=== PATIENT | female | born 1945 | race Caucasian/White ===

== ENCOUNTER 2016-11-25 16:14 | Emergency (ER) | payer OTHER ==
--- NOTE | 2016-11-25 19:00 | ED NURSING NOTES ---
Clinical Report - Nurses [facility] [place] [address] 11/25/2016 16:16 Patient: LYNDSAY FRAZIER TRIAGE Triage time 16:15. Acuity: LEVEL 3. Chief Complaint: (Wound on Coccyx). Alert. No acute distress. --16:36 Jose Noland R.N. 16:21 11/25/16. BP: 133/54. HR: 82. RR: 18. O2 saturation: 95%. Temp: 99.1 F. Pain level now 03/25. --16:36 Jose Noland R.N. Weight: 64.8 kg stated. Height/Length: 64 inches Per Patient. BMI: 24.5. --16:32 Jose Noland R.N. Medications AmLODIPine Besylate Oral. Lisinopril Oral. --16:29 Jose Noland R.N. Allergies None. --16:28 Jose Noland R.N. History Arrived by EMS. Historian: patient. ( Patient with history of MS. Fell in September and has not been able to walk or bear weight since then. Injured Shoulder in September has right arm in sling. Patient had surgery for pilonidal cyst when she was 18. States she has had some sort of sore on her Coccyx since then. Now, reportedly, has open decubitis ulcer on Coccyx. Currently it is dressed and is clean dry and intact. It is not clear why patient was transported to the hospital today.). SOCIAL HX: Former smoker, end date 10/13/2016. NUTRITIONAL RISK ASSESSMENT: The nutritional risk assessment revealed no deficiencies. FALL RISK ASSESSMENT: Fall risk assessment completed. Risk factors identified include severe pain and patient age greater than 65 years, history of fall and impairment of mobility. Fall interventions initiated. Side rails up x2. Bed in low position. Call light in reach of patient. Instructed not to get up without assistance. FUNCTIONAL ASSESSMENT: Functional assessment performed: requires total care with the activities of daily living; is bed-ridden- this mobility impairment is an ongoing problem. The patient is under physician and physical therapist care for hers functional impairment. --16:36 Jose Noland R.N. PROBLEMS: Hypertension. Multiple Sclerosis. --16:30 Jose Noland R.N. Interventions ID band on patient. To room. --16:36 Jose Noland R.N. PHYSICAL ASSESSMENT GENERAL / NEURO / PSYCH: Alert. Oriented X 4. Appears in no acute distress. RESPIRATORY: Respirations not labored. SKIN: Skin is warm and dry. --16:36 Jose Noland R.N. NURSING PROGRESS NOTES Patient identifiers checked. Call light placed in reach. Side rails up. Bed placed in lowest position. Brakes of bed on. --16:37 Jose Noland R.N. 17:00. ( Assisted turning patient so practitioner could visualize wound on Coccyx. Pictures taken.). --17:33 Jose Noland R.N. ( Margarita-care and then wound repacked and dressing placed). --17:34 Jose Noland R.N. Blood drawn for lab. --17:34 Jose Noland R.N. 19:53 11/25/2016 Hydrocodone-APAP (Hydrocodone-Acetaminophen) PO 5/325 mg Tablets 1 tab given. Allergies verified, confirmed 5 rights and sedative warning given to the patient and patient's family. --19:53 Elana Hughes DISPOSITION / DISCHARGE Fall risk assessment completed. Risk factors identified include patient age greater than 65 years and impairment of mobility. Fall interventions initiated. Patient placed on stretcher. Side rails up x2. Brakes on Bed in low position. Patient visible from nurses' station and identified as a fall risk. Family at bedside. Instructed not to get up without assistance. No learning barriers present. Discharge instructions provided and reviewed with the patient and family. Follow up contact number follow up with Dr Coronel. Patient and family verbalized understanding. Written instructions provided in Maltese. No warning instructions, medication instructions, treatment instructions, referrals given to the patient or diet instructions. No activity restrictions, note given or stop smoking instructions. The patient was discharged by the nurse practitioner. She was discharged to the [facility] and unaccompanied at time of discharge. She left the Emergency Department via ambulance and on a stretcher. Driving (ems). --19:36 Elana Hughes 19:34 11/25/16. BP: 132/60. HR: 68. RR: 16. O2 saturation: 96%. Temp: deferred. Pain level now: 10/23. --19:36 [facility]. [facility] Departure time: 19:46. ( pt upset with her discharge instructions, pt states this place is a joke and left angry). No learning barriers present. Discharge instructions provided and reviewed with the patient. Reviewed medication(s) side effects, precautions, dosing and course information. Prescription(s) given to the patient. Patient verbalized understanding. Written instructions provided in Maltese. No warning instructions, treatment instructions, referrals given to the patient, diet instructions or activity restrictions. No follow up contact number given or stop smoking instructions. No work note given. The patient was discharged by the nurse practitioner. She was discharged home and accompanied by spouse. She left the Emergency Department ambulatory and via private vehicle. Spouse driving. ( pt refused DC vitals). FALL RISK ASSESSMENT: Fall risk assessment completed. No fall risk identified. --19:46 Elana Hughes --END STRIKE>> Charted On Wrong Patient --19:47 Elana Hughes [facility] 19:44 11/25/16. BP: deferred. HR: deferred. RR: deferred. O2 saturation: deferred. Temp: deferred. Pain level now deferred. --19:46 Elana Hughes --END STRIKE>> Charted on wrong patient. --19:47 Elana Hughes Departure time: 20:17. Transported via ambulance by EMS. --20:17 Elana Hughes Locked/Released at 11/25/2016 20:17 by Elana Hughes
--- NOTE | 2016-11-25 19:00 | ED NURSING NOTES ---
Clinical Report - Nurses [facility] [place] [address] 11/25/2016 16:16 Patient: LYNDSAY FRAZIER TRIAGE Triage time 16:15. Acuity: LEVEL 3. Chief Complaint: (Wound on Coccyx). Alert. No acute distress. --16:36 Jose Noland R.N. 16:21 11/25/16. BP: 133/54. HR: 82. RR: 18. O2 saturation: 95%. Temp: 99.1 F. Pain level now 03/25. --16:36 Jose Noland R.N. Weight: 64.8 kg stated. Height/Length: 64 inches Per Patient. BMI: 24.5. --16:32 Jose Noland R.N. Medications AmLODIPine Besylate Oral. Lisinopril Oral. --16:29 Jose Noland R.N. Allergies None. --16:28 Jose Noland R.N. History Arrived by EMS. Historian: patient. ( Patient with history of MS. Fell in September and has not been able to walk or bear weight since then. Injured Shoulder in September has right arm in sling. Patient had surgery for pilonidal cyst when she was 18. States she has had some sort of sore on her Coccyx since then. Now, reportedly, has open decubitis ulcer on Coccyx. Currently it is dressed and is clean dry and intact. It is not clear why patient was transported to the hospital today.). SOCIAL HX: Former smoker, end date 10/13/2016. NUTRITIONAL RISK ASSESSMENT: The nutritional risk assessment revealed no deficiencies. FALL RISK ASSESSMENT: Fall risk assessment completed. Risk factors identified include severe pain and patient age greater than 65 years, history of fall and impairment of mobility. Fall interventions initiated. Side rails up x2. Bed in low position. Call light in reach of patient. Instructed not to get up without assistance. FUNCTIONAL ASSESSMENT: Functional assessment performed: requires total care with the activities of daily living; is bed-ridden- this mobility impairment is an ongoing problem. The patient is under physician and physical therapist care for hers functional impairment. --16:36 Jose Noland R.N. PROBLEMS: Hypertension. Multiple Sclerosis. --16:30 Jose Noland R.N. Interventions ID band on patient. To room. --16:36 Jose Noland R.N. PHYSICAL ASSESSMENT GENERAL / NEURO / PSYCH: Alert. Oriented X 4. Appears in no acute distress. RESPIRATORY: Respirations not labored. SKIN: Skin is warm and dry. --16:36 Jose Noland R.N. NURSING PROGRESS NOTES Patient identifiers checked. Call light placed in reach. Side rails up. Bed placed in lowest position. Brakes of bed on. --16:37 Jose Noland R.N. 17:00. ( Assisted turning patient so practitioner could visualize wound on Coccyx. Pictures taken.). --17:33 Jose Noland R.N. ( Margarita-care and then wound repacked and dressing placed). --17:34 Jose Noland R.N. Blood drawn for lab. --17:34 Jose Noland R.N. 19:53 11/25/2016 Hydrocodone-APAP (Hydrocodone-Acetaminophen) PO 5/325 mg Tablets 1 tab given. Allergies verified, confirmed 5 rights and sedative warning given to the patient and patient's family. --19:53 Elana Hughes DISPOSITION / DISCHARGE Fall risk assessment completed. Risk factors identified include patient age greater than 65 years and impairment of mobility. Fall interventions initiated. Patient placed on stretcher. Side rails up x2. Brakes on Bed in low position. Patient visible from nurses' station and identified as a fall risk. Family at bedside. Instructed not to get up without assistance. No learning barriers present. Discharge instructions provided and reviewed with the patient and family. Follow up contact number follow up with Dr Coronel. Patient and family verbalized understanding. Written instructions provided in Turkish. No warning instructions, medication instructions, treatment instructions, referrals given to the patient or diet instructions. No activity restrictions, note given or stop smoking instructions. The patient was discharged by the nurse practitioner. She was discharged to the residential and unaccompanied at time of discharge. She left the Emergency Department via ambulance and on a stretcher. Driving (ems). --19:36 Elana Hughes 19:34 11/25/16. BP: 132/60. HR: 68. RR: 16. O2 saturation: 96%. Temp: deferred. Pain level now: 10/23. --19:36 Oma Hughes. [facility] Departure time: 19:46. ( pt upset with her discharge instructions, pt states this place is a joke and left angry). No learning barriers present. Discharge instructions provided and reviewed with the patient. Reviewed medication(s) side effects, precautions, dosing and course information. Prescription(s) given to the patient. Patient verbalized understanding. Written instructions provided in Turkish. No warning instructions, treatment instructions, referrals given to the patient, diet instructions or activity restrictions. No follow up contact number given or stop smoking instructions. No work note given. The patient was discharged by the nurse practitioner. She was discharged home and accompanied by spouse. She left the Emergency Department ambulatory and via private vehicle. Spouse driving. ( pt refused DC vitals). FALL RISK ASSESSMENT: Fall risk assessment completed. No fall risk identified. --19:46 Elana Hughes --END STRIKE>> Charted On Wrong Patient --19:47 Elana Hughes [facility]-- 19:44 11/25/16. BP: deferred. HR: deferred. RR: deferred. O2 saturation: deferred. Temp: deferred. Pain level now deferred. --19:46 Elana Hughes --END STRIKE>> Charted on wrong patient. --19:47 Elana Hughes Departure time: 20:17. Transported via ambulance by EMS. --20:17 Elana Hughes Locked/Released at 11/25/2016 20:17 by Elana Hughes
--- NOTE | 2016-11-25 19:00 | ED CLINICAL REPORT ---
Clinical Report - Physicians/Mid Levels [facility] [address] [place] [address] 11/25/2016 16:16 Patient: LYNDSAY FRAZIER Time Seen: 16:57; initial patient contact, initial documentation, patient care assumed. Arrived- By ambulance. Historian- patient. HISTORY OF PRESENT ILLNESS Chief Complaint: TENDER AREA. This started about 3 months ago and is still present. Not itchy or burning. It is described as painful. It has been located on the back (tailbone area). No cause has been identified. (nurse at rehab does daily dressing changes, pt is not real sure why the staff wanted her to come here). Similar symptoms previously: Once. ( had pilonidal cyst when she was a teen, and it was removed, no issues til Fe after she fell and hurt her shoulder and had to go to a rehab facility). Recent medical care: Not recently seen/assessed. REVIEW OF SYSTEMS No fever. All systems otherwise negative, except as recorded above. PAST HISTORY See nurses notes. PROBLEMS: Hypertension. Multiple Sclerosis. --16:30 Jose Noland R.N. SOCIAL HISTORY Former smoker. No alcohol use or drug use. No recent travel. Resides in a rehab facility. FAMILY HISTORY Negative. ADDITIONAL NOTES The nursing notes have been reviewed with agreement regarding the chief complaint, HPI, ROS, PMH and patient medications and allergies. PHYSICAL EXAM Vital Signs: 11/25/2016 16:21 BP: 133/54. HR: 82. RR: 18. O2 saturation: 95%. Temp: 99.1 F. Have been reviewed as normal and appear to be correct. Appearance: Alert. Oriented X3. No acute distress. Neck: Neck supple. Respiratory: No respiratory distress. Abdomen: Nontender. No organomegaly. Skin: Skin warm and dry. Normal skin color. No rash. Normal skin turgor. (open decubitus ulcer over coccyx area, no dc, bandage in place and removed, one piece of 2x2 gauze inside wound, wound cx obtained, very mild erythema, wound is open and does not appear to be infected, medium size open hole, approx 4 cm long and 3 cm wide and 2-3 cm deep). Extremities: Normal external inspection. Extremities nontender. Neuro: Oriented X 3. No motor deficit. No sensory deficit. LABS, X-RAYS, AND EKG Laboratory Tests: CBC w Diff: (YONI: 11/25/2016 17:35) ( [facility] 11/25/[place] 17:55) Final results Test Result Flag Units (Reference) WHITE BLOOD COUNT 12.9 H K/uL (4.5-11.5) RED BLOOD COUNT 3.03 L M/uL (4.00-5.20) HEMOGLOBIN 9.3 L gm/dL (12.0-16.0) HEMATOCRIT 27.9 L % (36.0-46.0) MEAN CELL VOLUME 92 fL (80-100) MEAN CORPUSCULAR HGB 31 pg (26-34) MEAN CORPUSCULAR HGB CONC 33 g/dL (31-37) RED CELL DISTRIBUTION WIDTH 13.5 % (11.6-14.8) PLATELET COUNT 288 K/uL (150-400) NEUTROPHIL % 83.7 H % (50-75) LYMPH % 9.7 L % (25-40) MONO % 5.0 % (3-14) EOSINOPHIL % 1.2 % (0-4) BASOPHIL % 0.4 % (0-2) CMP: (YONI: 11/25/2016 17:35) ( [facility] [place] 11/25/2016 18:17) Final results Test Result Flag Units (Reference) GLUCOSE 106 mg/dL (70-110) BUN 41 H mg/dL (7-18) CREATININE 1.3 mg/dL (0.6-1.3) Estimated GFR 43.17 mL/min Estimated GFR- 52.32 mL/min Note: Persistent reduction over 3 months in eGFR<60 mL/min/1.73 m2 defines CKD. Patients with eGFR values>=60 mL/min/1.73 m2 may also have CKD if evidence ofpersistent proteinuria. Additional information may be foundat www.kidney.org. SODIUM 140 mmol/L (136-145) POTASSIUM 4.8 mmol/L (3.5-5.1) CHLORIDE 105 mmol/L (98-107) CARBON DIOXIDE 25 mmol/L (21-32) CALCIUM 9.2 mg/dL (8.5-10.1) TOTAL PROTEIN 7.2 g/dL (6.4-8.2) ALBUMIN 2.5 L g/dL (3.3-5.0) BILIRUBIN, TOTAL 0.2 mg/dL (0.0-1.0) ALKALINE PHOSPHATASE 81 U/L (46-116) AST (SGOT) 14 L U/L (15-37) ALT (SGPT) 13 U/L (12-78) . PROGRESS AND PROCEDURES Course of Care: RN Jose telling me he spoke to someone at rehab and pt has wound appt next week with Surgeon, Dr. Perez 1914. daughter now here and asking about dc plan and what happened here, daughter updated and all qtns answered. Patient counseled in person regarding the patient's stable condition, test results and diagnosis. 18:56. Differential Diagnosis: Other possible considerations: decubitus ulcer, abscess, cyst, tumor, mrsa. Above considerations are based on history and physical exam. Differential diagnosis was discussed with patient. Disposition: Discharged home in good and improved condition (18:59). Condition: good and stable. CLINICAL IMPRESSION Stage 3 pressure ulcer with subcutaneous fat visible on the sacral area. INSTRUCTIONS (continue with current wound care). Warnings: GENERAL WARNINGS: Return or contact your physician immediately if your condition worsens or changes unexpectedly, if not improving as expected, or if other problems arise. Specifically return if problem worsens. Understanding of the discharge instructions verbalized by patient. Follow-up with: Emery Perez MD, General Surgeon, , [facility], [address] [facility] [address], [place], [id number] Follow up as scheduled even if well. Summary of care provided to patient. (Electronically signed by Gabby Odom A.R.N.P. 11/25/2016 22:16)
--- NOTE | 2016-11-25 19:00 | ED ORDER SUMMARY ---
..... Patient: LYNDSAY FRAZIER [facility] VisitID: [id number] [place] [address] 71y, F Registration Date/Time: 11/25/2016 ORDER SHEET Weight: 64.8 kg (stated) Allergies: None GENERAL ORDERS: Culture, Wound Deep (Back) (coccyx) Urgent (17:04 11/25/2016 HBivens A.R.N.P.) (Ack 17:07 KHoerner) (17:20 KHoerner) CBC w Diff Urgent (17:04 11/25/2016 HBivens A.R.N.P.) (Ack 17:07 KHoerner) (18:20 LNations ER Tech1) CMP Urgent (17:04 11/25/2016 HBivens A.R.N.P.) (Ack 17:07 KHoerner) (18:20 LNations ER Tech1) MEDICATION ORDERS: Hydrocodone-APAP PO 5/325 mg (NOW, HIGH ALERT MEDICATION) (19:45 11/25/2016 HBivens A.R.N.P.) (19:53 TBowen R.N.) IV FLUIDS: ORDER SHEET NOTES: [Electronically signed by Ivonne hWite R.N. (20:17 11/25/2016)] [Electronically signed by Gabby OdomR.N.P. (22:16 11/25/2016)] [Electronically locked/signed by Ivonne White R.N. (20:17 11/25/2016)]
--- NOTE | 2016-11-25 19:00 | ED ORDER SUMMARY ---
..... Patient: LYNDSAY FRAZIER OrderSheet [facility] VisitID: [id number] [place] [address] 71y, F Registration Date/Time: 11/25/2016 ORDER SHEET Weight: 64.8 kg (stated) Allergies: None GENERAL ORDERS: Culture, Wound Deep (Back) (coccyx) Urgent (17:04 11/25/2016 HBivens A.R.N.P.) (Ack 17:07 KHoerner) (17:20 KHoerner) CBC w Diff Urgent (17:04 11/25/2016 HBivens A.R.N.P.) (Ack 17:07 KHoerner) (18:20 LNations ER Tech1) CMP Urgent (17:04 11/25/2016 HBivens A.R.N.P.) (Ack 17:07 KHoerner) (18:20 LNations ER Tech1) MEDICATION ORDERS: Hydrocodone-APAP PO 5/325 mg (NOW, HIGH ALERT MEDICATION) (19:45 11/25/2016 HBivens A.R.N.P.) (19:53 TBowen R.N.) IV FLUIDS: ORDER SHEET NOTES: [Electronically signed by Ivonne White R.N. (20:17 11/25/2016)] [Electronically signed by Gabby OdomR.N.P. (22:16 11/25/2016)] [Electronically locked/signed by Ivonne White R.N. (20:17 11/25/2016)]
--- NOTE | 2016-11-25 19:00 | ED CLINICAL REPORT ---
Clinical Report - Physicians/Mid Levels [facility] [address] [place] [address] 11/25/2016 16:16 Patient: LYNDSAY FRAZIER Time Seen: 16:57; initial patient contact, initial documentation, patient care assumed. Arrived- By ambulance. Historian- patient. HISTORY OF PRESENT ILLNESS Chief Complaint: TENDER AREA. This started about 3 months ago and is still present. Not itchy or burning. It is described as painful. It has been located on the back (tailbone area). No cause has been identified. (nurse at rehab does daily dressing changes, pt is not real sure why the staff wanted her to come here). Similar symptoms previously: Once. ( had pilonidal cyst when she was a teen, and it was removed, no issues til Fe after she fell and hurt her shoulder and had to go to a rehab facility). Recent medical care: Not recently seen/assessed. REVIEW OF SYSTEMS No fever. All systems otherwise negative, except as recorded above. PAST HISTORY See nurses notes. PROBLEMS: Hypertension. Multiple Sclerosis. --16:30 Jose Noland R.N. SOCIAL HISTORY Former smoker. No alcohol use or drug use. No recent travel. Resides in a rehab facility. FAMILY HISTORY Negative. ADDITIONAL NOTES The nursing notes have been reviewed with agreement regarding the chief complaint, HPI, ROS, PMH and patient medications and allergies. PHYSICAL EXAM Vital Signs: 11/25/2016 16:21 BP: 133/54. HR: 82. RR: 18. O2 saturation: 95%. Temp: 99.1 F. Have been reviewed as normal and appear to be correct. Appearance: Alert. Oriented X3. No acute distress. Neck: Neck supple. Respiratory: No respiratory distress. Abdomen: Nontender. No organomegaly. Skin: Skin warm and dry. Normal skin color. No rash. Normal skin turgor. (open decubitus ulcer over coccyx area, no dc, bandage in place and removed, one piece of 2x2 gauze inside wound, wound cx obtained, very mild erythema, wound is open and does not appear to be infected, medium size open hole, approx 4 cm long and 3 cm wide and 2-3 cm deep). Extremities: Normal external inspection. Extremities nontender. Neuro: Oriented X 3. No motor deficit. No sensory deficit. LABS, X-RAYS, AND EKG Laboratory Tests: CBC w Diff: (YONI: 11/25/2016 17:35) ( [facility] [place] 11/25/2016 17:55) Final results Test Result Flag Units (Reference) WHITE BLOOD COUNT 12.9 H K/uL (4.5-11.5) RED BLOOD COUNT 3.03 L M/uL (4.00-5.20) HEMOGLOBIN 9.3 L gm/dL (12.0-16.0) HEMATOCRIT 27.9 L % (36.0-46.0) MEAN CELL VOLUME 92 fL (80-100) MEAN CORPUSCULAR HGB 31 pg (26-34) MEAN CORPUSCULAR HGB CONC 33 g/dL (31-37) RED CELL DISTRIBUTION WIDTH 13.5 % (11.6-14.8) PLATELET COUNT 288 K/uL (150-400) NEUTROPHIL % 83.7 H % (50-75) LYMPH % 9.7 L % (25-40) MONO % 5.0 % (3-14) EOSINOPHIL % 1.2 % (0-4) BASOPHIL % 0.4 % (0-2) CMP: (YONI: 11/25/2016 17:35) ( [facility] 11/25/2016 18:17) Final results Test Result Flag Units (Reference) GLUCOSE 106 mg/dL (70-110) BUN 41 H mg/dL (7-18) CREATININE 1.3 mg/dL (0.6-1.3) Estimated GFR 43.17 mL/min Estimated GFR- 52.32 mL/min Note: Persistent reduction over 3 months in eGFR<60 mL/min/1.73 m2 defines CKD. Patients with eGFR values>=60 mL/min/1.73 m2 may also have CKD if evidence ofpersistent proteinuria. Additional information may be foundat www.kidney.org. SODIUM 140 mmol/L (136-145) POTASSIUM 4.8 mmol/L (3.5-5.1) CHLORIDE 105 mmol/L (98-107) CARBON DIOXIDE 25 mmol/L (21-32) CALCIUM 9.2 mg/dL (8.5-10.1) TOTAL PROTEIN 7.2 g/dL (6.4-8.2) ALBUMIN 2.5 L g/dL (3.3-5.0) BILIRUBIN, TOTAL 0.2 mg/dL (0.0-1.0) ALKALINE PHOSPHATASE 81 U/L (46-116) AST (SGOT) 14 L U/L (15-37) ALT (SGPT) 13 U/L (12-78) . PROGRESS AND PROCEDURES Course of Care: RN Jose telling me he spoke to someone at rehab and pt has wound appt next week with Surgeon, Dr. Perez 1914. daughter now here and asking about dc plan and what happened here, daughter updated and all qtns answered. Patient counseled in person regarding the patient's stable condition, test results and diagnosis. 18:56. Differential Diagnosis: Other possible considerations: decubitus ulcer, abscess, cyst, tumor, mrsa. Above considerations are based on history and physical exam. Differential diagnosis was discussed with patient. Disposition: Discharged home in good and improved condition (18:59). Condition: good and stable. CLINICAL IMPRESSION Stage 3 pressure ulcer with subcutaneous fat visible on the sacral area. INSTRUCTIONS (continue with current wound care). Warnings: GENERAL WARNINGS: Return or contact your physician immediately if your condition worsens or changes unexpectedly, if not improving as expected, or if other problems arise. Specifically return if problem worsens. Understanding of the discharge instructions verbalized by patient. Follow-up with: Emery Perez MD, General Surgeon, , [facility], [address] [facility] [address], [place], [address] Follow up as scheduled even if well. Summary of care provided to patient. (Electronically signed by Gabby Odom A.R.N.P. 11/25/2016 22:16)
--- NOTE | 2016-11-25 22:16 | ED DISCHARGE INSTRUCTIONS ---
Patient: LYNDSAY FRAZIER General Instructions [facility] VisitID: [id number] [address] [place], [place] [id number] 71y, F Registration Date/Time: 11/25/2016 Stage 3 pressure ulcer with subcutaneous fat visible on the sacral area. INSTRUCTIONS (continue with current wound care). Warnings: GENERAL WARNINGS: Return or contact your physician immediately if your condition worsens or changes unexpectedly, if not improving as expected, or if other problems arise. Specifically return if problem worsens. Understanding of the discharge instructions verbalized by patient. Follow-up with: Emery Perez MD, General Surgeon, , [facility], [address] [place] [address] Follow up as scheduled even if well. Summary of care provided to patient. ADDITIONAL INFORMATION Decubitus Ulcer A decubitus ulcer starts as a pressure sore (red, tender area on skin). It is caused by lying on a bony area for long periods of time without turning, causing a decrease in blood flow to that part of the skin. Decubitus ulcers usually occur on the lower back, buttocks or heels in persons who spend most or all of their time in bed. Healing time is slow and depends on the size and depth of the ulcer. If a decubitus ulcer becomes infected, it will cause redness in the skin around the ulcer and pus will drain from the wound. If not treated early, a decubitus infection can spread to the bloodstream or nearby bone. Home care The following guidelines will help you care for your wound at home: All ulcers should be looked at every day with good lighting to watch for signs of infection. At the same time, check other skin pressure points for early signs of a skin changes. Changing positions every few hours allows blood to flow to the pressure areas. This is essential for healing to occur. Use of special mattresses (foam, water, air mattresses) and gelpads will help reduce the pressure on the skin. Special skin coverings that remain in place may be prescribed. If a simple bandage is used, change it daily and clean the ulcer with sterile saline or another solution advised by your doctor. Pat dry. Apply any prescribed lotion or cream. Cover with a dry clean gauze pad. Bed linen should be kept clean and dry. Avoid soiling the ulcer with feces or urine. If this is not possible, minimize the time of contact with the feces or urine. Follow-up care Follow up with your doctor as advised by our staff. When to seek medical care Get prompt medical attention if any of the following occur: Increasing redness around the wound Increasing local pain or swelling Pus draining from a wound (not already treated) Unexplained fever over 100.4F (38.0C) oral, or higher You have been given the following additional information: Decubitus Ulcer (Electronically signed by Gabby Odom A.R.N.P. 11/25/2016 22:16)
--- NOTE | 2016-11-25 22:16 | ED MED RECONCILIATION SUMMARY ---
Patient: LYNDSAY FRAZIER Medication Reconciliation Report [facility] VisitID: [id number] [address] [place] [address] 71y, F Registration Date/Time: 11/25/2016 Weight: 64.8 kg Height/Length: 64 in. BMI: 24.5 ALLERGIES: None The patient's Home Medications are listed below: THE FOLLOWING MEDICATIONS NEED TO BE RECONCILED: AmLODIPine Besylate Oral Lisinopril Oral The source(s) of the original Home Medication information: Not obtained. The following Medications were given to the patient in the Emergency Department: Hydrocodone-APAP [PO] PO 1 tab, administered: 11/25/2016 7:53:00 PM The following Medications were prescribed to the patient: None.
--- NOTE | 2016-11-25 22:16 | ED DISCHARGE INSTRUCTIONS ---
Patient: LYNDSAY FRAZIER General Instructions [facility] VisitID: [id number] [address] [place], [place] [id number] 71y, F Registration Date/Time: 11/25/2016 Stage 3 pressure ulcer with subcutaneous fat visible on the sacral area. INSTRUCTIONS (continue with current wound care). Warnings: GENERAL WARNINGS: Return or contact your physician immediately if your condition worsens or changes unexpectedly, if not improving as expected, or if other problems arise. Specifically return if problem worsens. Understanding of the discharge instructions verbalized by patient. Follow-up with: Emery Perez MD, General Surgeon, , [facility], [address] [place] [address] Follow up as scheduled even if well. Summary of care provided to patient. ADDITIONAL INFORMATION Decubitus Ulcer A decubitus ulcer starts as a pressure sore (red, tender area on skin). It is caused by lying on a bony area for long periods of time without turning, causing a decrease in blood flow to that part of the skin. Decubitus ulcers usually occur on the lower back, buttocks or heels in persons who spend most or all of their time in bed. Healing time is slow and depends on the size and depth of the ulcer. If a decubitus ulcer becomes infected, it will cause redness in the skin around the ulcer and pus will drain from the wound. If not treated early, a decubitus infection can spread to the bloodstream or nearby bone. Home care The following guidelines will help you care for your wound at home: All ulcers should be looked at every day with good lighting to watch for signs of infection. At the same time, check other skin pressure points for early signs of a skin changes. Changing positions every few hours allows blood to flow to the pressure areas. This is essential for healing to occur. Use of special mattresses (foam, water, air mattresses) and gelpads will help reduce the pressure on the skin. Special skin coverings that remain in place may be prescribed. If a simple bandage is used, change it daily and clean the ulcer with sterile saline or another solution advised by your doctor. Pat dry. Apply any prescribed lotion or cream. Cover with a dry clean gauze pad. Bed linen should be kept clean and dry. Avoid soiling the ulcer with feces or urine. If this is not possible, minimize the time of contact with the feces or urine. Follow-up care Follow up with your doctor as advised by our staff. When to seek medical care Get prompt medical attention if any of the following occur: Increasing redness around the wound Increasing local pain or swelling Pus draining from a wound (not already treated) Unexplained fever over 100.4F (38.0C) oral, or higher You have been given the following additional information: Decubitus Ulcer (Electronically signed by Gabby Odom A.R.N.P. 11/25/2016 22:16)
--- NOTE | 2016-11-25 22:16 | ED MED RECONCILIATION SUMMARY ---
Patient: LYNDSAY FRAZIER Medication Reconciliation Report [facility] VisitID: [id number] [address] [place] [address] 71y, F Registration Date/Time: 11/25/2016 Weight: 64.8 kg Height/Length: 64 in. BMI: 24.5 ALLERGIES: None The patient's Home Medications are listed below: THE FOLLOWING MEDICATIONS NEED TO BE RECONCILED: AmLODIPine Besylate Oral Lisinopril Oral The source(s) of the original Home Medication information: Not obtained. The following Medications were given to the patient in the Emergency Department: Hydrocodone-APAP [PO] PO 1 tab, administered: 11/25/2016 7:53:00 PM The following Medications were prescribed to the patient: None.
--- NOTE | 2016-11-25 22:16 | ED MAR SUMMARY ---
..... Medication Administration Record [facility] [address] [place] [address] Patient: LYNDSAY FRAZIER Visit ID: [id number] 71y, F Weight: 64.8 kg Height/Length: 64 in BMI: 24.5 ALLERGIES: None Given 19:53 11/25/2016 Elana Hughes Medication Administered: HYDROCODONE-APAP [PO] (HYDROCODONE-ACETAMINOPHEN), Dose: 1 tab 5/325 mg Tablets PO. Medication Ordered: Hydrocodone-APAP PO 5/325 mg (NOW, HIGH ALERT MEDICATION).
--- NOTE | 2016-11-25 22:16 | ED MAR SUMMARY ---
..... Medication Administration Record [facility] [address] [place] [address] Patient: LYNDSAY FRAZIER Visit ID: [id number] 71y, F Weight: 64.8 kg Height/Length: 64 in BMI: 24.5 ALLERGIES: None Given 19:53 11/25/2016 Elana Hughes Medication Administered: HYDROCODONE-APAP [PO] (HYDROCODONE-ACETAMINOPHEN), Dose: 1 tab 5/325 mg Tablets PO. Medication Ordered: Hydrocodone-APAP PO 5/325 mg (NOW, HIGH ALERT MEDICATION).
== END 2016-11-25 20:18 | disposition home or self-care (01) ==
LOC: ED SRH 16:14
DX: L89.153 Pressure ulcer of sacral region, stage 3 (principal); I10 Essential (primary) hypertension
CPT/HCPCS: 90074; 90100; 90131; 90309; 90470; 95059